=== PATIENT | female | born 1990 | race Hispanic/Latino ===

== ENCOUNTER 2018-01-15 | Emergency (ER) | payer BC, OTHER ==
[2018-01-15 00:10] VITALS: BP 138/76; PULSE 72; RESP 18; TEMP 97.7; O2SAT 100
[2018-01-15] MEDS ORDERED: Sodium Chloride 0.9% 1,000 ML IV STA (00:22)
[2018-01-15] MEDS ORDERED: DiphenhydrAMINE 50 mg/ml Inj IV STA (00:22)
[2018-01-15 00:56] LABS: SQUAMOUS EPITHIAL < 1 /hpf (0-5); URINE BACTERIA RARE (<OCC); URINE BILIRUBIN NEGATIVE (NEGATIVE); URINE BLOOD NEGATIVE (NEGATIVE); URINE CLARITY CLEAR (Clear); URINE COLOR COLORLESS (YELLOW); URINE GLUCOSE (UA) NEG (Normal); URINE LEUKOCYTE ESTERASE NEG Leu/uL (Negative); URINE PROTEIN NEGATIVE (NEGATIVE); URINE UROBILINOGEN 0.2-1.0 mg/dL (0.2-1.0)
--- NOTE | 2018-01-15 01:04 | ED PDOC ---
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 Patient reports returning on a flight from [place] this past weekend, where she suddenly began to feel a sensation of chest tightness, throat tightness, and complains of losing her voice. She does not believe that she ate anything containing maple, and denies rashes or itchiness or any trouble swallowing. Of note, patient does own an epinephrine pen, but did not use it; however she did take one benadryl prior to arrival without any relief of symptoms. Past Medical History Reviewed: Historical Data, Nursing Documentation, Vital Signs Vital Signs: Last Vital Signs Temp 97.7 F 01/15/18 00:07 Pulse 72 01/15/18 00:07 Resp 18 01/15/18 00:07 BP 138/76 01/15/18 00:07 Pulse Ox 100 01/15/18 00:07 - Medical History Other PMH: allergic to male - Surgical History Surgical History: Tonsillectomy - Family History Family History: States: Unknown Family Hx - Social History Current smoker - smoking cessation education provided: No Ex-Smoker (has not smoked in the last 12 months): No Alcohol: Occasional Drugs: Denies - Home Medications Home Medications: Ambulatory Orders Medication Instructions Recorded Famotidine [Pepcid] 20 mg PO Q12 #14 tab 01/15/18 predniSONE [predniSONE Tab] 60 mg PO QAM #12 tab 01/15/18 - Allergies Allergies/Adverse Reactions: Allergies Allergy/AdvReac Type Severity Reaction Status Date / Time No Known Allergies Allergy Verified 01/15/18 00:11 Review of Systems ROS Statement: Except As Marked, All Systems Reviewed And Found Negative ENT: Positive for: Throat Pain (tightness) Cardiovascular: Positive for: Chest Pain (tightness) Skin: Negative for: Rash (no itchiness) Physical Exam - Reviewed Nursing Documentation Reviewed: Yes Vital Signs Reviewed: Yes - Physical Exam Appears: Positive for: Well, Non-toxic, No Acute Distress Head Exam: Positive for: ATRAUMATIC, NORMAL INSPECTION, NORMOCEPHALIC Skin: Positive for: Normal Color, Warm. Negative for: Rash Eye Exam: Positive for: EOMI, Normal appearance, PERRL ENT: Positive for: Normal ENT Inspection Neck: Positive for: Normal, Painless ROM Cardiovascular/Chest: Positive for: Regular Rate, Rhythm. Negative for: Murmur Respiratory: Positive for: Normal Breath Sounds. Negative for: Respiratory Distress Gastrointestinal/Abdominal: Positive for: Normal Exam, Soft. Negative for: Tenderness Back: Positive for: Normal Inspection Extremity: Positive for: Normal ROM Neurologic/Psych: Positive for: Alert, Oriented. Negative for: Motor/Sensory Deficits - ECG O2 Sat by Pulse Oximetry: 100 (RA) Pulse Ox Interpretation: Normal - Critical Care Total Time (In Min): 30 Disposition - Clinical Impression Clinical Impression: Allergic reaction - Patient ED Disposition Is Patient to be Admitted: No - Disposition Disposition: Routine/Home Disposition Time: 03:05 Condition: STABLE Prescriptions: Famotidine [Pepcid] 20 mg PO Q12 #14 tab predniSONE [predniSONE Tab] 60 mg PO QAM #12 tab Instructions: Anaphylaxis Forms: [facility] ([place]ish) Medical Decision Making Medical Decision Making: Time: --00:20 Impression: --27 yo female with an allergic reaction Plan: --ED Urine Dip --Urine Preg --Eiphenhydramine 50mg IV --Pepcid 40mg IV --methylprednisolone 125 mg IVP --IV fluids --Heplock Insertion Reassess --03:05 Patient reports of improvement of symptoms. Patient is stable for discharge home. Diagnosis: allergic reaction Scribe Attestation: Documented by Preet Rinaldi acting as a scribe for Jovany Keen MD. Provider Attestation: All medical record entries made by the Scribe were at my direction and personally dictated by me. I have reviewed the chart and agree that the record accurately reflects my personal performance of the history, physical exam, medical decision making, and the department course for this patient. I have also personally directed, reviewed, and agree with the discharge instructions and disposition.
== END 2018-01-15 02:51 | disposition home or self-care (01) ==
LOC: H.ER
DX: T78.40XA Allergy, unspecified, initial encounter (principal); Z87.891 Personal history of nicotine dependence
CPT/HCPCS: 81003; 81025; 96361; 96374; 96375; 99283; J1200; J2930; J7040